=== PATIENT | male | born 1970 | race Caucasian/White ===

== ENCOUNTER 2017-10-29 16:03 | Emergency (ER) | payer BC ==
[2017-10-29 16:20] VITALS: BP 134/87; PULSE 79; RESP 16; TEMP 97.9
--- NOTE | 2017-10-29 17:07 | ED ---
General Adult HPI - General Chief complaint: Burn/Smoke Inhalation Stated complaint: Sun Burn on Legs, Swelling Time Seen by Provider: 10/29/17 16:25 Source: patient, RN notes reviewed Mode of arrival: ambulatory Limitations: no limitations - History of Present Illness Initial comments: Patient 47-year-old male presented to the emergency room today with a chief complaint of sunburn that occurred 2 days ago. He does admit that he was outside for approximately 4 hours down by the water. He states he does not wear shorts usually. Patient states that he noticed had increased redness to his legs the following day. He states he has some swelling down to the left leg. Patient states that he had a go to work the following day she did not want pay. And noticed when he came home took his boots obvious blisters around the ankle area. He states blisters have not popped. He states he still has the swelling can feel it when he is up moving around his feet. Patient denies any other complaints or symptoms. Patient denies any recent fever , chills, shortness of breath, chest pain, back pain, abdominal pain, nausea or vomiting, numbness or tingling, headaches or visual changes, or any other complaints. - Related Data Previous Rx's Medication Instructions Recorded Bacitracin Oint 28.4 gm TOPICAL BID #1 tube 10/29/17 Ibuprofen [Motrin] 800 mg PO Q6HR #30 tab 10/29/17 Allergies Allergy/AdvReac Type Severity Reaction Status Date / Time No Known Allergies Allergy Verified 10/29/17 16:20 Review of Systems ROS Statement: Those systems with pertinent positive or pertinent negative responses have been documented in the HPI. ROS Other: All systems not noted in ROS Statement are negative. Past Medical History Past Medical History: No Reported History History of Any Multi-Drug Resistant Organisms: None Reported Past Surgical History: No Surgical Hx Reported Past Psychological History: No Psychological Hx Reported Smoking Status: Current every day smoker Past Alcohol Use History: None Reported, Occasional Past Drug Use History: None Reported General Exam - General Exam Comments Initial Comments: General: The patient is awake and alert, in no distress, and does not appear acutely ill. Neck: The neck is supple, there is no tenderness or JVD. Cardiovascular: There is a regular rate and rhythm. No murmur, rub or gallop is appreciated. Respiratory: Lungs are clear to auscultation, respirations are non-labored, breath sounds are equal. No wheezes, stridor, rales, or rhonchi. Musculoskeletal: Full range motion. Sensation intact. Pulses equal bilaterally 2+. Strength 5/5. Neurological: A&O x 3. CN II-XII intact, There are no obvious motor or sensory deficits. Coordination appears grossly intact. Speech is normal. Skin: Patient does have redness to the lower extremities bilaterally none circumferential. There are 2 blisters seem to the medial aspect of the left ankle area each measuring approximately 2-3 cm across. Blisters are closed. Psychiatric: Normal mood and affect. Limitations: no limitations Course Vital Signs 10/29/17 16:16 Temperature 97.9 F Pulse Rate 79 Respiratory 16 Rate Blood Pressure 134/87 O2 Sat by Pulse 99 Oximetry Medical Decision Making - Medical Decision Making Patient will be continued on anti-inflammatories and given topical antibiotics. Advised follow-up family doctor returning for any other concerns. Disposition Clinical Impression: Sunburn Disposition: HOME SELF-CARE Condition: Good Instructions: Sunburn (ED) Additional Instructions: Please use medication as discussed. Please follow-up with family doctor in the next 2 days of symptoms have not improved. Please return to emergency room if the symptoms increase or worsen or for any other concerns. Prescriptions: Bacitracin Oint 28.4 gm TOPICAL BID #1 tube Ibuprofen [Motrin] 800 mg PO Q6HR #30 tab Is patient prescribed a controlled substance at d/c from ED?: No Referrals: None,Stated [Primary Care Provider] - 1-2 days Time of Disposition: 17:10
== END 2017-10-29 17:19 | disposition home or self-care (01) ==
LOC: EC 16:03
DX: L55.9 Sunburn, unspecified (principal); F17.200 Nicotine dependence, unspecified, uncomplicated
CPT/HCPCS: 99283